=== PATIENT | female | born 1960 | race Caucasian/White ===

== ENCOUNTER 2020-02-27 20:50 | Inpatient (IN) | payer BC ==
[2020-02-27 21:25] LABS: #Lymphocytes 0.3 thou/uL (1.20-3.40); %Basophils 0.4 % (0.0-1.0); %Eosinophils 0.4 % (0.0-10.0); %Lymphocytes 8.1 % (21.0-51.0); %Monocytes 0.6 % (0.0-10.0); %Neutrophils 90.5 % (42.0-75.0); Hemoglobin 12.1 g/dL (12.0-16.0); Mean Corpuscular HGB CONC 33.7 g/dL (32.0-36.0); Mean Corpuscular Hemoglobin 32.2 pg (27.0-31.0); Mean Corpuscular Volume 95.5 fL (78.0-98.0); Mean Platelet Volume 7.4 fL (7.4-10.4); Platelet Count 151 thou/uL (130-400); RBC Distribution Width 11.9 % (11.5-14.5); Red Blood Cell (RBC) Count 3.76 mill/uL (4.20-5.40); White Blood Cell (WBC) Count 3.3 thou/uL (4.8-10.8)
[2020-02-27 21:45] LABS: ALT (SGPT) 11 U/L (8-55); AST (SGOT) 12 U/L (5-34); Albumin 3.6 g/dL (3.5-5.0); Alkaline Phosphatase 133 U/L (40-110); Anion Gap 12 mmol/L (10-20); BUN (Urea Nitrogen) 28 mg/dL (9.8-20.1); Calc. Creatinine Clearance 0 mL/min (70-130); Calcium 8.2 mg/dL (7.8-10.44); Carbon Dioxide 22 mmol/L (22-29); Chloride 107 mmol/L (98-107); Estimated GFR-MDRD 68; Globulin 2.6 g/dL (2.4-3.5); Glucose 107 mg/dL (70-105); Lipase 15 U/L (8-78); Potassium 3.1 mmol/L (3.5-5.1); Protein, Total 6.2 g/dL (6.0-8.3); Sodium 138 mmol/L (136-145)
[2020-02-27] MEDS ORDERED: cefTRIAXone\\ROCEPHIN 2 GM VIAL ONE (21:54)
[2020-02-27] MEDS ORDERED: Vancomycin 1 GM/200 ML BAG ONE (22:18)
[2020-02-27 22:22] LABS: Bacteria/HPF 4+ HPF (None Seen); Bilirubin Negative (Negative); Blood, Urine 2+ (Negative); Clarity Clear (Clear); Glucose, Urine (Dipstick) Normal (Negative); Leukocyte 250 Leu/uL (Negative); Nitrite 2+ (Negative); Protein, Urine (Dipstick) 20 mg/dL (Neg-Trace); Squamous Epithelial 0-3 HPF (0-3); Urobilinogen Normal mg/dL (Less than 2); WBC/HPF 21-50 HPF (0-3)
[2020-02-27] MEDS ORDERED: Ondansetron PF 4 MG/2 ML Vial IVP PRN (23:23)
[2020-02-27] MEDS ORDERED: Midazolam HCl 2 mg/2 ml Vial ONE (23:54)
[2020-02-27] MEDS ORDERED: Fentanyl 100 MCG/2 ML VIAL ONE (23:54)
[2020-02-28] MEDS ORDERED: Albumin 5% 500 ML ONE (00:03)
[2020-02-28] MEDS ORDERED: Succinylcholine Chloride 20 MG/ML 10 ml SYRINGE FS ONE (00:17)
[2020-02-28] MEDS ORDERED: PHENYLEPHRINE-NS 100 MCG/ML 10 ML SYRINGE ONE (00:17)
[2020-02-28] MEDS ORDERED: Ondansetron HCl/PF 4 MG/2 ML Vial IVP PRN (00:27)
[2020-02-28] MEDS ORDERED: Promethazine HCl 25 MG/ML VIAL IM PRN (00:27)
[2020-02-28] MEDS ORDERED: Promethazine HCl 25 MG/ML VIAL SLOW IVP PRN (00:27)
[2020-02-28] MEDS ORDERED: Meperidine HCl/PF 25 MG/ML VIAL SLOW IVP PRN (00:27)
[2020-02-28] MEDS ORDERED: Vancomycin 1 GM in Premix Bag 1 BAG IVPB SCH ×2 (00:30→10:00)
--- NOTE | 2020-02-28 01:23 | OP ---
DATE OF PROCEDURE: 02/28/2020 SERVICE: Urology. PREOPERATIVE DIAGNOSIS: Right ureteral stone with sepsis. POSTOPERATIVE DIAGNOSIS: Right ureteral stone with sepsis. PROCEDURES PERFORMED: Cystoscopy and right ureteral stent placement. INDICATIONS FOR PROCEDURE: Ms. Valentin is a 59-year-old white female, who presented to the emergency room with sepsis and hypotension with a right distal ureteral stone. She is being brought to the operating room emergently for cystoscopy and right ureteral stent placement. All risks and benefits have been discussed and she has agreed to proceed forward. DESCRIPTION OF PROCEDURE: After identification of armband and verification of consent, the patient was brought back to the operating room, where she underwent general anesthesia with rapid sequence intubation. She was then placed in dorsal lithotomy position and prepped and draped in usual sterile fashion. After appropriate time-out, a lubricated 22-Armenian rigid cystoscope was introduced per urethra into the bladder. Attention was turned to the right ureteral orifice, which was in its orthotopic location and cannulated with a 0.035 Sensor wire up to the level of renal pelvis. A 6 x 26 double-J stent was advanced over the Sensor wire above the renal pelvis and the wire removed leaving a good curl in the kidney and a good curl in the bladder. The bladder was then emptied and the cystoscope removed. The patient was then awakened, taken to PACU for recovery in stable condition. COMPLICATIONS: None. ESTIMATED BLOOD LOSS: Minimal. RETAINED TUBES AND DRAINS: A 6 x 26 double-J stent on the right. SPECIMENS: None. DISPOSITION: The patient will be admitted to the hospital for IV antibiotics and monitoring. When she is adequately treated and her culture results have been finalized, she can be discharged on oral antibiotics as an outpatient and have her stone treated definitively in the future. Job ID: [id number]
[2020-02-28] MEDS ORDERED: Potassium Chloride 20 MEQ in Premix Bag 1 BAG IVPB SCH (01:30)
[2020-02-28] MEDS ORDERED: Ondansetron PF 4 MG/2 ML Vial ONE (01:47)
[2020-02-28 03:50] VITALS: BMI 25.8
[2020-02-28] MEDS: Sodium Chloride 0.9% 1,000 ML IV SCH ×4 (04:24→23:15)
[2020-02-28] MEDS: Cefepime 2 GM in Sodium Chloride 0.9% 100 ML IVPB SCH ×3 (04:24→23:12)
[2020-02-28 04:26] LABS: #Lymphocytes 0.7 thou/uL (1.20-3.40); #Monocytes 0.6 thou/uL (0.11-0.59); #Neutrophils 10.6 thou/uL (1.40-6.50); %Basophils 0.2 % (0.0-1.0); %Eosinophils 0.1 % (0.0-10.0); %Monocytes 5.2 % (0.0-10.0); %Neutrophils 88.5 % (42.0-75.0); Hemoglobin 10.7 g/dL (12.0-16.0); Mean Corpuscular HGB CONC 33.9 g/dL (32.0-36.0); Mean Corpuscular Hemoglobin 32.3 pg (27.0-31.0); Mean Corpuscular Volume 95.3 fL (78.0-98.0); Mean Platelet Volume 7.6 fL (7.4-10.4); Platelet Count 139 thou/uL (130-400); RBC Distribution Width 11.8 % (11.5-14.5); Red Blood Cell (RBC) Count 3.31 mill/uL (4.20-5.40)
[2020-02-28] MEDS ORDERED: Potassium Chloride 20 MEQ TAB PO SCH (04:30)
[2020-02-28 04:55] LABS: ALT (SGPT) 9 U/L (8-55); AST (SGOT) 12 U/L (5-34); Albumin 3.4 g/dL (3.5-5.0); Alkaline Phosphatase 73 U/L (40-110); Anion Gap 11 mmol/L (10-20); BUN (Urea Nitrogen) 22 mg/dL (9.8-20.1); Bilirubin, Total 0.7 mg/dL (0.2-1.2); Calc. Creatinine Clearance 89 mL/min (70-130); Calcium 7.1 mg/dL (7.8-10.44); Carbon Dioxide 19 mmol/L (22-29); Chloride 112 mmol/L (98-107); Estimated GFR-MDRD 74; Globulin 2.1 g/dL (2.4-3.5); Glucose 126 mg/dL (70-105); Protein, Total 5.5 g/dL (6.0-8.3); Sodium 139 mmol/L (136-145)
--- NOTE | 2020-02-28 05:46 | HP ---
CHIEF COMPLAINT: Right flank pain. HISTORY OF PRESENT ILLNESS: Ms. Valentin is a 59-year-old female with past medical history of mitral valve prolapse, kidney stones, presented to the emergency room with right flank pain radiating to the right abdomen, nausea, vomiting, fever, and chills that started yesterday. Symptoms got worse today. The patient called her PCP and was prescribed Flomax and pain medications. Symptoms got worse. The patient denies chest pain, shortness of breath, diarrhea, or other symptoms. Workup in the emergency room including imaging studies, the patient was found to have a right distal UVP stone, urine showing infection. The patient's blood pressure systolic is in the 80s. The patient runs low blood pressure at her baseline. Septic workup done in the ED. The patient was started on IV antibiotics. Urologist consulted, who is making arrangements to take the patient to the OR. PAST MEDICAL HISTORY: 1. Kidney stones. 2. Mitral valve prolapse. PAST SURGICAL HISTORY: 1. Back surgery. 2. Wrist surgery. 3. Cholecystectomy. FAMILY HISTORY: Brother had kidney stones. SOCIAL HISTORY: Denies smoking. Drinks alcohol socially. ALLERGIES: NO KNOWN ALLERGIES. CURRENT MEDICATIONS: See home medication reconciliation form for updated medications. REVIEW OF SYSTEMS: Review of 14 systems negative except what is mentioned in history of present illness. PHYSICAL EXAMINATION: GENERAL: The patient is awake, alert, in moderate distress. VITAL SIGNS: Blood pressure is 85/52, pulse is 98, respiratory rate is 18, temperature 102.8, oxygen saturation 93% on room air. HEAD AND NECK: Normocephalic, atraumatic. NECK: Supple. No JVD. CHEST: Fair bilateral air entry. HEART: S1, S2. Regular. Tachycardic. ABDOMEN: Soft with right flank tenderness. Bowel sounds present. NEUROLOGIC: Awake, alert, and oriented x3. PSYCH: Normal mood. GENITOURINARY: Right flank tenderness. No suprapubic tenderness. LABORATORY DATA: Urinalysis is positive for bacteria 4+, wbcs, nitrite, and leukocytes. Electrolytes, potassium is 3.1, BUN is 28, creatinine 0.8. WBC is 3.3, hemoglobin 12.1, platelets 151. ASSESSMENT: 1. Sepsis. 2. Right kidney stone, infected. 3. Urinary tract infection. 4. History of kidney stones. 5. Low blood pressure. PLAN: 1. Admit. 2. Septic workup including blood cultures, urine cultures. 3. IV fluids. 4. IV antibiotics. 5. Urology is consulted by the ED, who is making arrangements to take the patient to the OR tonight. 6. Pain management. 7. Reconcile home medications. 8. DVT prophylaxis as appropriate. 9. Expected length of stay, 2 midnights or more. Job ID: [id number]
--- NOTE | 2020-02-28 08:42 | CON ---
DATE OF CONSULTATION: 02/27/2020 CONSULTING: Emergency room. REASON FOR CONSULTATION: Infected ureteral stone. HISTORY OF PRESENT ILLNESS: Ms. Daniel is a 59-year-old white female with a history of nephrolithiasis in the past, presenting with a 1-day history of right flank pain. She began having right flank pain yesterday with severe sharp pain in her right side radiating down toward her groin. At that time, she had nausea, but no vomiting. She called her primary care doctor, who called her in some pain medication, which is not specified. She stated she started feeling better for short time, but then the pain became worse again and she started having chills along with fevers and felt her heart racing. She was brought into the emergency room by her , where she underwent a CT scan, which demonstrated a 4 mm distal right ureterovesical junction stone. At that time, it was noted that she had signs of sepsis with a heart rate of 115, temperature of 103, and a blood pressure with a systolic in the 80s. She states that she has never required any surgery previously for kidney stones. She has passed stones previously on her own before. She does not have a urologist. She does not have frequent problem with urinary tract infections. She states that she does not have any baseline voiding dysfunction. ALLERGIES: NONE. HOME MEDICATIONS: Currently, the patient taking some unspecified pain medication. No other medications. PAST MEDICAL HISTORY: 1. Mitral valve stenosis. 2. Spine issues. 3. Nephrolithiasis. PAST SURGICAL HISTORY: 1. Domingo bishop in her spine. 2. Ganglion cyst removal on her left wrist. 3. Cholecystectomy. FAMILY HISTORY: Noncontributory for nephrolithiasis. SOCIAL HISTORY: The patient denies alcohol abuse, illicit drugs, or tobacco abuse. REVIEW OF SYSTEMS: A 12-point review of systems reviewed and negative other than what was commented on the HPI. Specifically, body aches, fevers, chills, urinary frequency, dysuria, nausea, and flank pain. PHYSICAL EXAMINATION: VITAL SIGNS: Temperature is 102.8, blood pressure is 76/49, heart rate 97, respirations 20, and saturations 95% on 2 L nasal cannula. GENERAL: No apparent distress. Communicative and alert. Answering questions appropriately. Appears stated age, well nourished, well developed, mildly overweight. HEENT: Normocephalic and atraumatic. Pupils are symmetric and round. Sclerae nonicteric. Trachea midline. Dry mucous membranes. CARDIOVASCULAR: Alternating between tachycardic and regular rate. Apparently normal rhythm and normal S1 and S2. Symmetric pulses. CHEST: No increased work of breathing and symmetric expansion. LUNGS: Clear anteriorly. ABDOMEN: Soft and nondistended. Mild tenderness to palpation in the right lower quadrant and right CVA tenderness. Prior well-healed incisions. No hernias. No organomegaly. : Deferred at this time. EXTREMITIES: No clubbing, cyanosis, or edema. MUSCULOSKELETAL: No joint deformity or joint erythema noted. Full range of motions. NEUROLOGIC: Cranial nerves 2 through 12 grossly intact. No focal or sensory motor deficits identified. SKIN: Warm and dry. No rash or lesions. Good turgor. PSYCHIATRIC: Alert and oriented x3. Appropriate mood and affect. LYMPH: No enlarged lymph nodes in the supraclavicular, cervical, or popliteal areas. LABORATORY DATA: On laboratory evaluation, the full set of labs are in the [facility], which I have reviewed. Of note, the patient's white count is 3.3 with a hemoglobin of 12.1 and platelet count of 151. Creatinine is currently 0.85 with a mildly elevated BUN of 28. Urinalysis demonstrates 2+ blood, 2+ nitrite, 250 leukocyte esterase, 21 to 50 white cells, no squamous cells, and 4+ bacteria. CT done in the emergency room demonstrates patchy airspace disease within the inferior and posterior aspect of both lower lobes concerning for mild bibasilar infiltrates. There is a punctate left renal stone noted. No hydronephrosis on the left. There is hydronephrosis and perinephric stranding on the right with hydroureter on the right side with stranding secondary to a distal right 4 mm ureterovesical junction stone. ASSESSMENT AND PLAN: A 59-year-old white female with fevers, tachycardia, and low blood pressure consistent with sepsis with a right ureteral stone with hydronephrosis and perinephric stranding and bibasilar infiltrates. It is unclear whether these infiltrates are the start of an early pneumonia. However, I am not necessarily convinced that this is the source of her sepsis. Given her urine findings along with the perinephric stranding and hydronephrosis, as well as her flank pain, I do suspect that the urine and the kidney are the probable source of her current sepsis. She may require separate treatment for her lungs, but I would recommend broad-spectrum antibiotic coverage for her sepsis, currently aggressive IV hydration and pressors as needed. She needs to be kept n.p.o. and will be brought emergently to the operating room. I went over cystoscopy and right ureteral stent placement with the patient including postoperative course. Risks and benefits were discussed including risk of being unable to place a stent; damage to the ureter, kidneys, or bladder; and worsening infection and bleeding. She understands these risks and states that she is willing to proceed forward. Failure to place a stent or nephrostomy tube could lead to severe sepsis and . She does understand this and would like to proceed forward with cystoscopy and right ureteral stent placement. We will plan for removal of the stone at a future date. I would recommend she be admitted to the Medical Service. If her blood pressure does not improve postoperatively, she may need to go to the ICU for monitoring. Job ID: [id number]
--- NOTE | 2020-02-28 08:42 | CT ---
CT ABDOMEN AND PELVIS: DATE: 02/27/2020. COMPARISON: 12/15/2015. HISTORY: Back pain, kidney stone pain. TECHNIQUE: Axial CT imaging at 5 mm intervals from lung bases through pubic symphysis without contrast. Coronal and sagittal reformatted imaging obtained. FINDINGS: The lack of contrast media limits assessment of the viscera, bowel vascular structures, and for lymph adenopathy. There is patchy airspace disease within the inferior posterior aspect of both lower lobes, left great er than right. This is slightly more prominent than expected for atelectasis and, thus, findings may be on the basis of mild bibasilar infiltrate. Spinal hardware again noted from lower thoracic spine through lower lumbar spine. No free intraperitoneal air is appreciated. The liver, gallbladder, and spleen appear grossly unremarkable. The pancreas and bilateral adrenal glands are unremarkable. Punctate nonobstructing lower pole left renal stone noted. There is no evidence for obstructive uropathy on the left. There is hydronephrosis, perinephric stranding, and hydroureter on the right with stranding adjacent to the right ureter. This is secondary to a distal ureteral obstructing stone best seen on axial yane ge 71 and coronal image 85. This distal right ureteral obstructing stone measures approximately 4 mm and is just proximal to the right ureterovesicular junction. Review of the bowel demonstrates no evidence for inflammatory change or obstruction. The appendix ap pears unremarkable. The osseous structures demonstrate multilevel lower lumbar spine facet hypertrophy. Multilevel spina l posterior fusion as well as vacuum disk formation at L3-4 and L5-S1. No worrisome lytic or blastic bone lesion. IMPRESSION: 1. Evidence of obstructive uropathy on the right secondary to a 4 mm obstructing stone within the di stal right ureter. 2. Punctate nonobstructing lower pole renal calculus on the left. 3. Patchy opacity within the lung bases as detailed above. POS: [facility]
[2020-02-28] MEDS ORDERED: Vancomycin HCl 1 GM in Sodium Chloride 0.9% 250 ML 300 ML IVPB SCH (09:00)
[2020-02-28] MEDS ORDERED: Vancomycin HCl 1.25 GM in Sodium Chloride 0.9% 250 ML 250 ML IVPB SCH (10:00)
--- NOTE | 2020-02-28 10:52 | PDOC.HOSPP ---
- Subjective Encounter Date: 02/28/20 Encounter Time: 10:50 Subjective: Ms. Daniel was seen today in follow-up of Nephrolithiasis, and UTI with sepsis. She notes a little pain in her right lower abdomen, but otherwise ok. She denies any nausea or vomiting. - Objective Vital Signs & Weight: Vital Signs (12 hours) Temp Pulse Ox 02/28/20 08:00 98.3 F 97 02/28/20 04:00 98.1 F 97 Weight Weight 164 lb 14.492 oz Most Recent Monitor Data Heart Rate from ECG 75 NIBP 82/55 NIBP BP-Mean 64 Respiration from ECG 27 SpO2 94 I&O: 02/27/20 02/28/20 02/29/20 06:59 06:59 06:59 Intake Total 814 100 Output Total 0 450 Balance 814 -350 Result Diagrams: 02/28/20 04:00 02/28/20 04:00 Hospitalist ROS - Medication Medications: Active Medications Generic Name Dose Route Start Last Admin Trade Name Freq PRN Reason Stop Dose Admin Sodium Chloride 1,000 mls @ 125 mls/hr 02/27/20 23:30 02/28/20 07:46 Normal Saline 0.9% IV 1,000 mls .Q8H CAN Administration Cefepime HCl 2 gm/ Sodium 100 mls @ 200 mls/hr 02/27/20 23:59 02/28/20 04:24 Chloride IVPB 100 mls 1200,2359 CAN Administration - Exam Eye: PERRL, anicteric sclera Heart: RRR, no gallops, no rubs, normal peripheral pulses, murmur present, III/ IV Respiratory: CTAB, no wheezes, no rales, no ronchi, normal chest expansion, no tachypnea, normal percussion Gastrointestinal: soft, non-tender, non-distended, normal bowel sounds, no palpable masses, no hepatomegaly Extremities: no cyanosis, no edema Hosp A/P (1) Right nephrolithiasis Code(s): N20.0 - CALCULUS OF KIDNEY Status: Acute (2) UTI (urinary tract infection) Status: Acute (3) Severe sepsis Code(s): A41.9 - SEPSIS, UNSPECIFIED ORGANISM; R65.20 - SEVERE SEPSIS WITHOUT SEPTIC SHOCK Status: Acute (4) Hypokalemia Code(s): E87.6 - HYPOKALEMIA Status: Acute - Plan * UTI with severe sepsis- her blood pressure continues to be marginal, but her MAP is around 60. * Will continue with IV fluids, and continue Cefepime, and Vancomycin * She is s/p Ureteral STENT placement- continue as per Urology recommendation * Hypokalemia- replace Potassium * Begin to mobilize
[2020-02-28] MEDS: Vancomycin 1 GM in Premix Bag 1 BAG IVPB SCH (16:37)
--- NOTE | 2020-02-28 18:19 | PRG ---
DATE OF SERVICE: 02/28/2020 SUBJECTIVE: The patient states she is feeling a lot better. Her appetite is returning. She has some mild discomfort in her right lower quadrant and some pressure when urinating, but otherwise no significant complaints of pain. Mild hematuria, some urinary frequency q.2 h. OBJECTIVE: VITAL SIGNS: Temperature 98.6, pulse 77, respirations 19, blood pressure 102/56, and saturation 93% on room air. GENERAL: No apparent distress. Communicative and alert. CARDIOVASCULAR: Regular rate and rhythm. ABDOMEN: Soft, nontender, and nondistended. Positive bowel sounds. EXTREMITIES: No clubbing, cyanosis, or edema. LABORATORY EVALUATION: The full set of labs are in the [facility] [facility] system, which I have reviewed. Of note, the patient's white count is 12, today and hemoglobin of 10.7. Creatinine of 0.79. Blood and urine cultures are positive, blood cultures with gram-negative rods, urine culture with presumptive E coli. ASSESSMENT AND PLAN: A 59-year-old white female with Escherichia coli urosepsis secondary to an infected and impacted right ureteral stone status post emergent right ureteral stent placement. The patient is doing better now. She is on broad-spectrum antibiotics. I do think the vancomycin can be discontinued. She should remain on broad-spectrum IV gram-negative coverage until cultures are finalized. At that point, I think we can proceed forward with oral antibiotic therapy based on culture results. She will need a minimum of 2 weeks of antibiotics or longer as clinically indicated. I went over the definitive surgery, which would be ureteroscopy in the future. I would wait at least 2 weeks and we can consider doing this towards the end of February. I will coordinate the surgery dates to get this set up. I went over the surgery with her for ureteroscopy including the postoperative course and recovery, need for postoperative stenting again, and risks and benefits, which include, but are not limited to, worsening infection, bleeding, damage to the ureter, ureteral stricture, ureteral perforation, bladder or renal injury, and need for further surgery with incomplete stone removal. She understands these risks and states she would like to proceed forward with ureteroscopy. If she passes her stone, then we will cancel the surgery. I will also plan for imaging to be done the day before her surgery to see if the stone is still present. If it is, then we will plan to proceed with surgery, and if it is not, then I will cancel the surgery and just remove her stent in the office. I will sign off for now. Please re-consult if there are any further questions or concerns. Job ID: [id number]
[2020-02-28] MEDS ORDERED: Acetaminophen 325 MG TAB PO PRN (23:01)
--- NOTE | 2020-02-29 03:04 | CON ---
DATE OF CONSULTATION: HISTORY OF PRESENT ILLNESS: Ms. Valentin is a 59-year-old female, who presented with urinary tract sepsis. She has had a kidney stone in the past and knew she had a kidney stone this time, but thought she would pass it. She put up with her discomfort for several days. She finally reached a point, where she started having shaking chills. An ambulance was called. She dropped her blood pressure when the ambulance arrived, so she was transferred straight here from [place]. She has had ureteral stenting performed by the urologist. She has moved up to the [place] area from [place]. [place] lived on the [place] of [place], [place] of [facility]. PAST MEDICAL HISTORY: Remarkable for, 1. Mitral valve issues. 2. History of low back issues as well as history of Domingo rods placed. 3. History of kidney stone in the past. 4. History of ganglion cyst. 5. History of cholecystectomy. FAMILY HISTORY: Negative for lung disease in early age. SOCIAL HISTORY: She is a nonsmoker and nondrinker. REVIEW OF SYSTEMS: 10-point review of systems is otherwise negative. PHYSICAL EXAMINATION: VITAL SIGNS: She is febrile on admission. Afebrile, when I saw her in the ICU. This morning, her blood pressure was in the 90s. She normal systolic blood pressures between 100 to 110. Heart rate was in the 90s, she was in sinus rhythm. Respiratory rate is in the teens. GENERAL: She is in no distress, talking in complete sentences. HEAD AND NECK: Unremarkable. She had no cervical lymphadenopathy. LUNGS: Clear. HEART: Regular rhythm. S1 and S2 are normal. She has grade systolic murmur, more consistent with mitral regurgitation. I did not hear mitral stenosis murmur, but I rarely have heard one. ABDOMEN: Soft and nontender. EXTREMITIES: Without clubbing, cyanosis, or edema. NEURO: Nonfocal. LABORATORY DATA: White count 4.0, hemoglobin 10.7, and platelets 139. Sodium 139, potassium 3, chloride 112, bicarb 19, BUN 22, and creatinine 0.79. Blood cultures and urine cultures are growing out E coli. She had 21 to 50 white cells and 4 to 6 red cells on urinalysis. IMPRESSION: Urinary tract sepsis with an obstructing stone, now status post relief of the obstruction with the ureteral stent. She is clinically doing well. In my opinion, she is stable to move out of Critical Care to a medical bed. Job ID: [id number]
[2020-02-29] MEDS: Vancomycin 1 GM in Premix Bag 1 BAG IVPB SCH (04:57)
[2020-02-29 06:24] LABS: #Basophils 0.1 thou/uL (0.0-0.2); #Eosinphils 0.1 thou/uL (0.0-0.7); #Lymphocytes 1.8 thou/uL (1.20-3.40); #Monocytes 0.9 thou/uL (0.11-0.59); #Neutrophils 10.3 thou/uL (1.40-6.50); %Basophils 0.5 % (0.0-1.0); %Eosinophils 0.9 % (0.0-10.0); %Lymphocytes 13.8 % (21.0-51.0); %Monocytes 7.1 % (0.0-10.0); %Neutrophils 77.8 % (42.0-75.0); Hemoglobin 10.9 g/dL (12.0-16.0); Mean Corpuscular HGB CONC 33.6 g/dL (32.0-36.0); Mean Corpuscular Volume 95.4 fL (78.0-98.0); Mean Platelet Volume 8.1 fL (7.4-10.4); Platelet Count 162 thou/uL (130-400); Red Blood Cell (RBC) Count 3.41 mill/uL (4.20-5.40); White Blood Cell (WBC) Count 13.3 thou/uL (4.8-10.8)
[2020-02-29 06:45] LABS: Anion Gap 9 mmol/L (10-20); BUN (Urea Nitrogen) 14 mg/dL (9.8-20.1); Calc. Creatinine Clearance 109 mL/min (70-130); Calcium 7.8 mg/dL (7.8-10.44); Carbon Dioxide 20 mmol/L (22-29); Chloride 115 mmol/L (98-107); Estimated GFR-MDRD Greater than 90; Glucose 102 mg/dL (70-105); Potassium 3.3 mmol/L (3.5-5.1); Sodium 141 mmol/L (136-145)
[2020-02-29] MEDS ORDERED: Potassium Chloride 20 MEQ TAB PO SCH ×2 (08:00→18:30)
[2020-02-29] MEDS: cefTRIAXone\\ROCEPHIN 1 GM in Sodium Chloride 0.9% 100 ML IVPB SCH (08:59)
[2020-02-29] MEDS: Sodium Chloride 0.9% 1,000 ML IV SCH ×2 (11:22→19:23)
--- NOTE | 2020-02-29 12:52 | PRG ---
DATE OF SERVICE: 02/29/2020 SUBJECTIVE: Liza Valentin has no complaints. OBJECTIVE: VITAL SIGNS: She is afebrile, heart rates in the 50s, respiratory rates in the teens, oximetry is 96%, blood pressure 105/67. LUNGS: Clear. HEART: Regular rhythm. ABDOMEN: Soft. E coli sensitivities are back. The organism is sensitive to Cipro and Levaquin. She is currently on Rocephin. IMPRESSION: Escherichia coli sepsis secondary to nephrolithiasis, status post intraureteral stenting. She can be switched to quinolone, IV antimicrobial therapy and discharge in my opinion. We will sign off. Job ID: [id number]
[2020-02-29 15:30] LABS: Potassium 3.8 mmol/L (3.5-5.1)
--- NOTE | 2020-02-29 19:06 | PDOC.HOSPP ---
- Subjective Encounter Date: 02/29/20 Encounter Time: 19:03 Subjective: Ms. Daniel was seen today in follow-up of Nephrolithiasis and UTI with sepsis. She is feeling much better. No new complaints. - Objective Vital Signs & Weight: Vital Signs (12 hours) Temp Pulse Resp BP Pulse Ox 02/29/20 16:00 98.1 F 61 18 121/78 95 02/29/20 11:34 97.6 F 55 L 18 105/67 96 02/29/20 07:38 98.5 F 63 18 103/63 95 Weight Weight 164 lb 14.492 oz Most Recent Monitor Data Heart Rate from ECG 77 NIBP 102/56 NIBP BP-Mean 71 Respiration from ECG 19 SpO2 93 I&O: 02/28/20 02/29/20 03/01/20 06:59 06:59 06:59 Intake Total 814 4468 Output Total 0 1100 Balance 814 3368 Result Diagrams: 02/29/20 06:04 02/29/20 14:56 Hospitalist ROS - Medication Medications: Active Medications Generic Name Dose Route Start Last Admin Trade Name Freq PRN Reason Stop Dose Admin Acetaminophen 650 mg 02/28/20 23:01 02/28/20 23:12 Tylenol PO 650 mg Q6H PRN Administration Mild Pain (1-3) Sodium Chloride 1,000 mls @ 125 mls/hr 02/27/20 23:30 02/29/20 11:22 Normal Saline 0.9% IV Not Given .Q8H CAN Ceftriaxone Sodium 1 gm/ 100 mls @ 200 mls/hr 02/29/20 09:00 02/29/20 08:59 Sodium Chloride IVPB 100 mls Q24HR CAN Administration Sodium Chloride 10 ml 02/29/20 09:00 02/29/20 09:00 Flush - Normal Saline IVF Not Given Q12HR CAN - Exam Eye: PERRL Heart: RRR, no murmur, no gallops, no rubs, normal peripheral pulses Respiratory: CTAB, no wheezes, no rales, no ronchi, normal chest expansion Gastrointestinal: soft, non-tender, non-distended, normal bowel sounds, no palpable masses, no hepatomegaly Extremities: no cyanosis, no edema Hosp A/P (1) Right nephrolithiasis Code(s): N20.0 - CALCULUS OF KIDNEY Status: Acute (2) UTI (urinary tract infection) Status: Acute (3) Severe sepsis Code(s): A41.9 - SEPSIS, UNSPECIFIED ORGANISM; R65.20 - SEVERE SEPSIS WITHOUT SEPTIC SHOCK Status: Acute (4) Hypokalemia Code(s): E87.6 - HYPOKALEMIA Status: Acute - Plan * UTI with sepsis- improved * Urine culture is growing E. Coli which is sensitive to Cephalosporins, and Quinolones * Will transition her antibiotics to Rocephin, and likely place her on Omnicef at discharge * Hypokalemia-continue to replace Potassium * Hopefully home tomorrow
[2020-02-29] MEDS: Magnesium Oxide 400 MG TAB PO SCH (19:22)
[2020-03-01] MEDS: Sodium Chloride 0.9% 1,000 ML IV SCH ×2 (05:51→08:21)
[2020-03-01 06:24] LABS: #Basophils 0.1 thou/uL (0.0-0.2); #Eosinphils 0.1 thou/uL (0.0-0.7); #Lymphocytes 1.9 thou/uL (1.20-3.40); #Monocytes 0.7 thou/uL (0.11-0.59); #Neutrophils 8.4 thou/uL (1.40-6.50); %Basophils 0.9 % (0.0-1.0); %Eosinophils 1.2 % (0.0-10.0); %Lymphocytes 16.8 % (21.0-51.0); %Monocytes 6.4 % (0.0-10.0); %Neutrophils 74.8 % (42.0-75.0); Hemoglobin 10.5 g/dL (12.0-16.0); Mean Corpuscular HGB CONC 32.8 g/dL (32.0-36.0); Mean Corpuscular Hemoglobin 30.9 pg (27.0-31.0); Mean Corpuscular Volume 94.1 fL (78.0-98.0); Mean Platelet Volume 7.7 fL (7.4-10.4); Platelet Count 204 thou/uL (130-400); Red Blood Cell (RBC) Count 3.41 mill/uL (4.20-5.40); White Blood Cell (WBC) Count 11.2 thou/uL (4.8-10.8)
[2020-03-01 06:42] LABS: Anion Gap 11 mmol/L (10-20); BUN (Urea Nitrogen) 13 mg/dL (9.8-20.1); Calc. Creatinine Clearance 110 mL/min (70-130); Calcium 8.3 mg/dL (7.8-10.44); Carbon Dioxide 21 mmol/L (22-29); Chloride 113 mmol/L (98-107); Estimated GFR-MDRD Greater than 90; Glucose 95 mg/dL (70-105); Potassium 3.9 mmol/L (3.5-5.1); Sodium 141 mmol/L (136-145)
[2020-03-01 07:34] VITALS: BP 124/82; TEMP 98.7
[2020-03-01] MEDS: Magnesium Oxide 400 MG TAB PO SCH (08:20)
--- NOTE | 2020-03-01 08:51 | PDOC.HOSPP ---
- Subjective Encounter Date: 03/01/20 Encounter Time: 08:49 Subjective: Ms. Daniel was seen today in follow-up of UTI and sepsis. She does not have any complaints. - Objective Vital Signs & Weight: Vital Signs (12 hours) Temp Pulse Resp BP BP Pulse Ox 03/01/20 07:33 98.7 F 79 20 124/82 94 L 03/01/20 03:57 98.4 F 68 18 114/72 95 02/29/20 23:50 98.3 F 74 18 101/65 92 L Weight Weight 164 lb 14.492 oz Most Recent Monitor Data Heart Rate from ECG 77 NIBP 102/56 NIBP BP-Mean 71 Respiration from ECG 19 SpO2 93 I&O: 02/29/20 03/01/20 03/02/20 06:59 06:59 06:59 Intake Total 4468 1000 Output Total 1100 Balance 3368 1000 Result Diagrams: 03/01/20 06:07 03/01/20 06:07 Hospitalist ROS - Medication Medications: Active Medications Generic Name Dose Route Start Last Admin Trade Name Freq PRN Reason Stop Dose Admin Acetaminophen 650 mg 02/28/20 23:01 02/28/20 23:12 Tylenol PO 650 mg Q6H PRN Administration Mild Pain (1-3) Sodium Chloride 1,000 mls @ 125 mls/hr 02/27/20 23:30 03/01/20 08:21 Normal Saline 0.9% IV Not Given .Q8H CAN Ceftriaxone Sodium 1 gm/ 100 mls @ 200 mls/hr 02/29/20 09:00 02/29/20 08:59 Sodium Chloride IVPB 100 mls Q24HR CAN Administration Magnesium Oxide 400 mg 02/29/20 21:00 03/01/20 08:20 Magnesium Oxide PO 400 mg BID CAN Administration Saccharomyces Boulardii 250 mg 03/01/20 09:00 03/01/20 08:20 Florastor PO 250 mg DAILY CAN Administration Sodium Chloride 10 ml 02/29/20 09:00 03/01/20 08:21 Flush - Normal Saline IVF Not Given Q12HR CAN - Exam Eye: PERRL, anicteric sclera Heart: RRR, no murmur, no gallops, no rubs, normal peripheral pulses Respiratory: CTAB, no wheezes, no rales, no ronchi, normal chest expansion Gastrointestinal: soft, non-tender, non-distended, normal bowel sounds, no palpable masses Extremities: no cyanosis, no edema Hosp A/P (1) Right nephrolithiasis Code(s): N20.0 - CALCULUS OF KIDNEY Status: Acute (2) UTI (urinary tract infection) Status: Acute (3) Severe sepsis Code(s): A41.9 - SEPSIS, UNSPECIFIED ORGANISM; R65.20 - SEVERE SEPSIS WITHOUT SEPTIC SHOCK Status: Acute (4) Hypokalemia Code(s): E87.6 - HYPOKALEMIA Status: Acute - Plan * UTI with sepsis- improving * Stable for discharge home
[2020-03-01] MEDS ORDERED: Saccharomyces boulardii 250 MG CAP PO SCH (09:00)
[2020-03-01] MEDS: cefTRIAXone\\ROCEPHIN 1 GM in Sodium Chloride 0.9% 100 ML IVPB SCH (09:33)
--- NOTE | 2020-03-01 10:02 | DIS ---
DATE OF ADMISSION: 02/28/2020 DATE OF DISCHARGE: 03/01/2020 PRIMARY CARE PHYSICIAN: Dr. Jaylene Garrido. DISCHARGE DISPOSITION: Home. DISCHARGE DIAGNOSES: 1. Urinary tract infection with severe sepsis. 2. Nephrolithiasis. 3. History of mitral valve prolapse. DISCHARGE MEDICATIONS: Include; 1. Omnicef 300 mg p.o. b.i.d. for two weeks. 2. Flomax 0.4 mg q.8. 3. [place] 7.5 one tablet q.6 as needed. IMAGING: Imaging done during the hospital stay: The patient had a CT scan of the abdomen and pelvis, which demonstrated evidence of obstructive uropathy on the right secondary to a 4 mm stone in the right distal ureter. There was some patchy opacity within the lung bases. CODE STATUS: Full code. ALLERGIES: NO KNOWN DRUG ALLERGIES. HOSPITAL COURSE: Ms. Valentin is a pleasant 59-year-old female, who presented to the emergency room after having some flank pain and then high fever. She was evaluated in the ER and found to have an obstructing stone in the right ureter, also lab results revealed that she also had a urinary tract infection along with sepsis. She was admitted and started on broad-spectrum IV antibiotics. Urology was consulted and the patient went urgently to have a ureteral stent placed. She tolerated the procedure well and improved with regard to the sepsis. Her blood pressure returned back to normal and urine cultures eventually grew E coli, which was sensitive to both quinolones as well as cephalosporins. She was transitioned to Rocephin and monitored one more night. She did not develop any fever, and her white count continued to decline, and said she subsequently being discharged home and to have close followup with Dr. Garrido. She was also instructed to continue probiotic while she is on the antibiotics and she will also be following up with Dr. Smith in approximately 2 weeks, at which time, they will re-image and see whether or not the stone has passed and if not, then a stone extraction procedure will be done at that time. Job ID: [id number]
== END 2020-03-01 11:09 | disposition home or self-care (01) | DRG 854 ==
LOC: ERS 20:50 → CCU 02-28 00:08 → SDC/OP 02-28 00:17 → CCU 02-28 03:18 → MERGE 02-28 03:18 → T4-A 02-28 17:00
PROVIDERS: ADMIT Internal Medicine; ATTEND Internal Medicine
PROC: 0T768DZ Dilation of Right Ureter with Intraluminal Device, Via Natural or Artificial Opening Endoscopic (ICD-10-PCS; principal; 2020-02-28)
DX: A41.51 Sepsis due to Escherichia coli [E. coli] (principal); N13.6 Pyonephrosis; N20.0 Calculus of kidney; R65.20 Severe sepsis without septic shock; E87.6 Hypokalemia; Z79.899 Other long term (current) drug therapy; Z90.49 Acquired absence of other specified parts of digestive tract; Z87.442 Personal history of urinary calculi
CPT/HCPCS: 36415; 74176; 76000; 80048; 80053; 81003; 81015; 83605; 83690; 83735; 85025; 87040; 87077; 87086; 87149; 87186; 93005; J0692; J0696; J2250; J2405; J3010; J3370; J3490; P9045

== ENCOUNTER 2020-03-14 06:04 | Outpatient (CLI) | payer BC, OTHER ==
--- NOTE | 2020-03-14 15:28 | RAD ---
EXAM: Chest 2 views: HISTORY: Preoperative radiograph COMPARISON: None. FINDINGS: There is a normal-sized cardiomediastinal silhouette. There is no evidence of consolidation, mass, or pleural effusion. A bishop is seen in the thoracic spine. A pigtail catheter is seen projecting over the right upper quadrant of the abdomen. IMPRESSION: No evidence of acute cardiopulmonary disease
[2020-03-14 18:03] LABS: Hemoglobin 14.1 g/dL (12.0-16.0); Mean Corpuscular HGB CONC 32.9 g/dL (32.0-36.0); Mean Corpuscular Volume 94.3 fL (78.0-98.0); Mean Platelet Volume 7.1 fL (7.4-10.4); Platelet Count 374 thou/uL (130-400); RBC Distribution Width 12.3 % (11.5-14.5); Red Blood Cell (RBC) Count 4.54 mill/uL (4.20-5.40); White Blood Cell (WBC) Count 5.2 thou/uL (4.8-10.8)
[2020-03-14 18:13] LABS: Anion Gap 13 mmol/L (10-20); BUN (Urea Nitrogen) 24 mg/dL (9.8-20.1); Calc. Creatinine Clearance 0 mL/min (70-130); Carbon Dioxide 27 mmol/L (22-29); Chloride 104 mmol/L (98-107); Estimated GFR-MDRD 66; Glucose 105 mg/dL (70-105); Potassium 4.2 mmol/L (3.5-5.1); Sodium 140 mmol/L (136-145)
[2020-03-14 18:19] LABS: PTT 29.4 sec (22.9-36.1); Prothrombin Time 13.3 sec (12.0-14.7)
[2020-03-15 13:49] LABS: SARS-CoV-2 MS2 Positive; SARS-CoV-2 N Gene Negative; SARS-CoV-2 S Gene Negative; SARS-CoV-2 orf1ab Negative
== END 2020-03-14 06:05 | disposition home or self-care (01) ==
LOC: LABBT 06:04
PROVIDERS: ATTEND Urology
DX: Z01.818 Encounter for other preprocedural examination (principal); Z11.59 Encounter for screening for other viral diseases; Z23 Encounter for immunization; I34.1 Nonrheumatic mitral (valve) prolapse; E78.00 Pure hypercholesterolemia, unspecified; R73.03 Prediabetes; N20.0 Calculus of kidney; Z91.09 Other allergy status, other than to drugs and biological substances
CPT/HCPCS: 71046; 80048; 85027; 85610; 85730; 87635; 93005; 93010; U0003

== ENCOUNTER 2020-03-16 12:24 | Outpatient (CLI) | payer BC ==
--- NOTE | 2020-03-16 15:03 | CT ---
CT ABDOMEN AND PELVIS WITHOUT CONTRAST: 03/16/20 PROVIDED CLINICAL HISTORY: Renal calculus. FINDINGS: Comparison is made with the study dated 02/27/20. The visualized lung bases are free of significant opacity. Interval placement of a right ureteral stent, the proximal coil of which is within the superior pole collecting system and the distal coil of which is within the urinary bladder. The previously describ ed distal right ureteral calculus is no longer evident. There is a stable 3 mm nonobstructing inferio r pole left renal calculus. The solid abdominal organs are suboptimally evaluated in the absence of IV contrast material but demo nstrate an otherwise unremarkable unenhanced CT appearance. There is no bowel dilatation, inflammatory fat stranding, free fluid or lymph node enlargement appare nt. Small exophytic fibroid arises from the posterior aspect of the uterine fundus. Lumbar spine degenerative changes are seen. Thoracolumbar postoperative changes are redemonstrated. N o concerning lytic or blastic osseous lesions are seen. IMPRESSION: 1. Interval placement of right ureteral stent. Nonvisualization of previously described distal r ight ureteral calculus. 2. Stable nonobstructing inferior pole left renal calculus. POS: AH
== END 2020-03-16 12:25 | disposition home or self-care (01) ==
LOC: SCSCT 12:24
PROVIDERS: ATTEND Urology
DX: N20.0 Calculus of kidney (principal); Z96.0 Presence of urogenital implants
CPT/HCPCS: 74176

== ENCOUNTER 2022-10-04 14:48 | Emergency (ER) | payer BC ==
[2022-10-04 15:31] LABS: #Lymphocytes 1.1 thou/uL (1.20-3.40); #Monocytes 0.4 thou/uL (0.11-0.59); #Neutrophils 4.2 thou/uL (1.40-6.50); %Basophils 0.6 % (0.0-1.0); %Eosinophils 0.7 % (0.0-10.0); %Lymphocytes 19.2 % (21.0-51.0); %Monocytes 6.4 % (0.0-10.0); Mean Corpuscular HGB CONC 33.5 g/dL (32.0-36.0); Mean Corpuscular Hemoglobin 31.7 pg (27.0-31.0); Mean Corpuscular Volume 94.7 fl (78.0-98.0); Mean Platelet Volume 7.1 fL (7.4-10.4); Platelet Count 249 10x3/uL (130-400); RBC Distribution Width 11.7 % (11.5-14.5); White Blood Cell (WBC) Count 5.8 10x3/uL (4.8-10.8)
[2022-10-04 15:52] LABS: ALT (SGPT) 8 U/L (8-55); AST (SGOT) 12 U/L (5-34); Albumin 4.5 g/dL (3.4-4.8); Alkaline Phosphatase 105 U/L (40-110); Anion Gap 11 mmol/L (10-20); BUN (Urea Nitrogen) 17 mg/dL (9.8-20.1); Bilirubin, Total 0.7 mg/dL (0.2-1.2); Calc. Creatinine Clearance 0 mL/min (70-130); Calcium 9.6 mg/dL (7.8-10.44); Carbon Dioxide 26 mmol/L (23-31); Chloride 107 mmol/L (98-107); Estimated GFR 87; Globulin 2.9 g/dL (2.4-3.5); Glucose 147 mg/dL (80-115); Potassium 3.6 mmol/L (3.5-5.1); Protein, Total 7.4 g/dL (5.8-8.1); Sodium 140 mmol/L (136-145)
[2022-10-04 16:40] LABS: Bilirubin Negative (Negative); Blood, Urine 3+ (Negative); Clarity Clear (Clear); Glucose, Urine (Dipstick) Normal (Negative); Ketone, Urine Negative (Negative); Leukocyte Negative Leu/uL (Negative); Nitrite Negative (Negative); Protein, Urine (Dipstick) Negative (Neg-Trace); RBC/HPF Greater than 50 HPF (0-3); Squamous Epithelial 0-3 HPF (0-3); Urobilinogen Normal mg/dL (Less than 2); WBC/HPF 0-3 HPF (0-3); pH, Urine 5.5 (5.0-9.0)
[2022-10-04 16:41] LABS: Bacteria/HPF 1+ HPF (None Seen)
== END 2022-10-04 16:58 | disposition home or self-care (01) ==
LOC: ERS 14:48
DX: N13.2 Hydronephrosis with renal and ureteral calculous obstruction (principal); E78.5 Hyperlipidemia, unspecified; Z79.82 Long term (current) use of aspirin
CPT/HCPCS: 36415; 74176; 80053; 81003; 81015; 85025

== ENCOUNTER 2025-08-23 13:50 | Outpatient (CLI) | payer BC | END 2025-08-23 13:51 | disposition home or self-care (01) | LOC: SCSBT 13:50 | PROVIDERS: ATTEND Internal Medicine | DX: Z78.0 Asymptomatic menopausal state (principal) | CPT/HCPCS: 77080 ==